=== PATIENT | male | born 1990 | race Caucasian/White ===

== ENCOUNTER 2023-10-09 19:54 | Inpatient (IN) | payer OTHER ==
[2023-10-09 20:52] VITALS: BMI 23.0
[2023-10-09] MEDS ORDERED: NALOXONE HCL (KLOXXADO) 8 MG SPRAY NS PRN (23:49)
[2023-10-09] MEDS ORDERED: guaiFENesin 600 MG TABLET.ER (FP) PO PRN (23:49)
[2023-10-09] MEDS ORDERED: MAG HYDROX/AL HYDROX/SIMETH 30 ML UNIT-DOSE CUP PO PRN (23:49)
[2023-10-09] MEDS ORDERED: IBUPROFEN 600 MG TABLET (FP) PO PRN (23:49)
[2023-10-09] MEDS ORDERED: MAGNESIUM HYDROX 2400MG/30ML ORAL SUSPENSION 30 ML CUP PO PRN (23:49)
[2023-10-09] MEDS ORDERED: BENZONATATE 200 MG CAPSULE PO PRN (23:49)
[2023-10-09] MEDS ORDERED: BENZOCAINE/MENTHOL (CHLORASEPTIC ) LOZENGE MM PRN (23:49)
[2023-10-09] MEDS ORDERED: IBUPROFEN 400 MG TABLET (FP) PO PRN (23:49)
[2023-10-09] MEDS ORDERED: DICYCLOMINE HCL 10 MG CAPSULE PO PRN (23:49)
[2023-10-09] MEDS ORDERED: ACETAMINOPHEN 325 MG TABLET (FP) PO PRN (23:49)
[2023-10-09] MEDS ORDERED: POLYETHYLENE GLYCOL (HEALTHYLAX) 3350 17 GM PACKET PO PRN (23:49)
[2023-10-09] MEDS ORDERED: LOPERAMIDE HCL 2 MG CAPSULE PO PRN (23:49)
[2023-10-09] MEDS ORDERED: NALOXONE HCL 0.4 MG/ML VIAL IM PRN (23:49)
[2023-10-09] MEDS ORDERED: BISMUTH SUBSALICYLATE 524 MG/30 ML PO PRN (23:49)
[2023-10-09] MEDS ORDERED: hydrOXYzine PAMOATE 25 MG CAPSULE (FP) PO PRN (23:49)
[2023-10-09] MEDS ORDERED: NICOTINE POLACRILEX 2 MG GUM BUC PRN (23:49)
[2023-10-10] MEDS ORDERED: methaDONE HCL 10 MG TABLET (FOR DETOX USE ONLY) ONE (00:37)
[2023-10-10] MEDS: ONDANSETRON *ODT* 4 MG TABLET SL PRN (00:47)
[2023-10-10] MEDS: methaDONE HCL 10 MG TABLET (FOR DETOX USE ONLY) PO ONE (00:50)
[2023-10-10] MEDS: TRIMETHOBENZAMIDE HCL 200MG/2ML INJ IM ONE (00:54)
[2023-10-10] MEDS: NICOTINE 21 MG/24 HOURS TOPICAL PATCH TD SCH (11:02)
[2023-10-10] MEDS: PRENATAL VITAMINS W/ FOLIC ACID TABLET (FP) PO SCH (11:02)
[2023-10-10] MEDS ORDERED: methaDONE HCL 10 MG TABLET (FOR DETOX USE ONLY) PO ONE (13:42)
[2023-10-10] MEDS: THIAMINE 100 MG TABLET PO SCH (22:55)
[2023-10-10] MEDS: MELATONIN 5 MG TABLETS PO SCH (22:55)
[2023-10-11 09:10] VITALS: RESP 16
[2023-10-11] MEDS: methaDONE HCL 10 MG TABLET (FOR DETOX USE ONLY) PO ONE (10:17)
[2023-10-11] MEDS: METHOCARBAMOL 500 MG TABLET PO PRN (22:15)
[2023-10-11] MEDS: cloNIDine HCL 0.1 MG TABLET PO PRN (22:15)
[2023-10-12 06:36] VITALS: TEMP 97.6
[2023-10-12 08:59] VITALS: BP 129/67; PULSE 67
[2023-10-13] MEDS ORDERED: methaDONE HCL 10 MG TABLET (FOR DETOX USE ONLY) PO ONE (10:00)
== END 2023-10-12 10:34 | disposition left against medical advice (07) | DRG 770 ==
LOC: YASAS 19:54 → Y3N 10-10 01:10
PROVIDERS: ADMIT Allergy & Immunology; ATTEND Surgery
PROC: HZ2ZZZZ Detoxification Services for Substance Abuse Treatment (ICD-10-PCS; principal; 2023-10-10)
DX: F11.23 Opioid dependence with withdrawal (principal); F17.210 Nicotine dependence, cigarettes, uncomplicated; G62.89 Other specified polyneuropathies; R00.1 Bradycardia, unspecified; Z59.00 Homelessness unspecified
CPT/HCPCS: 80305; 93005; 93010; Q0162